=== PATIENT | female | born 1970 | race Caucasian/White ===

== ENCOUNTER 2016-08-29 21:05 | Emergency (ER) | payer BC ==
--- NOTE | ~2016-08-29 | CR181 ---
[facility]. [facility] A Service of [facility] & [facility] RADIOLOGY TEXT RESULTS PATIENT: BRADLEY VICTOR LOCATION: SED : 68 UNIT #: [id number] AGE: [address]: Cj Hoskins SEX: F ORDER DR: [id number] [place] [id number] E MR#: [id number] Acc #: [id number] NAME: BRADLEY VICTOR : 1970 SEX: F STUDY DATE/TIME: 08/29/2016 21:48 UNIT: SED ROOM: STUDY DESCRIPTION: CR Lumbar Spine 2 or 3 Views Attending Physician: Cj Hoskins P.A.-C. Ordering Physician: Cj Hoskins P.A.-C. Primary Care Physician: No Primary Care Physician MEDICAL IMAGING REPORT This report is preliminary unless electronic signature is present. EXAM Lumbosacral spine. HISTORY Low back pain for 3 weeks. FINDINGS AP, lateral and spot views are submitted. There is disc space narrowing at L5-S1. This is unchanged from the prior imaging. No fractures or subluxation are identified. There appears to be some underlying facet disease at 5-1. There is extensive marginal spur formation at 5-1. CONCLUSION Advanced degenerative disc disease at L5-S1. No significant changes from the study of June 2015. Dictated by... Cj Mays M.D. THIS IS AN ELECTRONICALLY VERIFIED REPORT Cj Mays M.D. at 08/30/2016 6:08 PM FRANCES/german TD: 08/30/2016 07:43 JOB #: [id number] MEDICAL IMAGING REPORT Page 1 of 1
[2016-08-29 21:49] LABS: URINE SOURCE CLEAN CATCH
[2016-08-29 21:51] LABS: URINE BILIRUBIN NEG (NEG); URINE BLOOD 3+ (NEG); URINE COLOR YELLOW; URINE GLUCOSE NEG (NORM); URINE KETONE NEG (NEG); URINE LEUKOCYTE ESTERASE NEG (NEG); URINE NITRATE NEG (NEG); URINE PH 5.5 (5-8); URINE PROTEIN 1+ (NEG); URINE SPECIFIC GRAVITY >=1.030 (1.003-1.035); URINE UROBILINOGEN 0.2 MG/DL (NORM)
[2016-08-29 21:52] LABS: MICRO INDICATED? YES; URINE APPEARANCE SL HAZY
[2016-08-29 21:58] LABS: CULTURE INDICATED? NO; URINE BACTERIA NEG (NEG)
[2016-08-29 21:59] LABS: URINE MUCUS PRESENT; URINE SQUAMOUS EPITHELIAL CELL MODERATE /[HPF]
== END 2016-08-29 22:41 | disposition home or self-care (01) ==
LOC: SED 21:05
PROVIDERS: Physician Assistant
DX: M54.5 Low back pain (principal); Z90.49 Acquired absence of other specified parts of digestive tract
CPT/HCPCS: 72100; 81003; 99283